=== PATIENT | female | born 1965 | race African-American/Black ===

== ENCOUNTER 2022-01-04 09:10 | Outpatient (RCR) | payer BC, SELFPAY ==
[2022-01-04 09:40] VITALS: BMI 25.8
[2022-01-04 09:46] VITALS: BMI 25.8
== END 2022-03-21 09:34 | disposition home or self-care (01) ==
LOC: ANHDMC 09:10
DX: E11.42 Type 2 diabetes mellitus with diabetic polyneuropathy (principal); E11.65 Type 2 diabetes mellitus with hyperglycemia; Z71.3 Dietary counseling and surveillance
CPT/HCPCS: 97802